=== PATIENT | male | born 2000 | race Caucasian/White ===

== ENCOUNTER 2022-11-21 01:16 | Observation (INO) ==
[2022-11-21] MEDS ORDERED: SODIUM CHLORIDE 0.9% 500 ML IV SCH (01:30)
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
[2022-11-21 01:57] LABS: iSTAT Creatinine 1.5 mg/dl (0.6-1.3); iSTAT Hemoglobin 15.6 g/dl (14.0-18.0); iSTAT Ionized Calcium 1.23 mmol/l (1.12-1.32); iSTAT Potassium 4.5 mmol/L (3.3-5.0)
[2022-11-21 02:07] LABS: Basophils # (auto) 0.03 K/uL (0-0.2); Basophils % (auto) 0.3 %; Eosinophils # (auto) 0.08 K/uL (0-0.50); Eosinophils % (auto) 0.7 %; Hematocrit (blood only) 45.3 % (42.0-52.0); Hemoglobin 15.5 g/dl (14.0-18.0); Immature Granulocytes # (auto) 0.08 K/uL (0.01-0.20); Immature Granulocytes % (auto) 0.7 %; Lymphocytes # (auto) 2.18 K/uL (1.2-3.4); Lymphocytes % (auto) 20.1 %; Mean Corpuscular Hemoglobin 27.7 pg (25.0-34.0); Mean Corpuscular Hgb Conc 34.2 g/dL (32.0-36.0); Mean Corpuscular Volume 80.9 fL (80.0-100.0); Mean Platelet Volume 10.4 fL (9.4-12.4); Monocytes # (auto) 0.49 K/uL (0.11-0.59); Monocytes % (auto) 4.5 %; Neutrophils # (auto) 7.99 K/uL (1.40-6.50); Neutrophils % (auto) 73.7 %; Platelet Count 304 K/uL (130-400); RDW Coefficient of Variation 12.6 % (11.5-14.5); RDW Standard Deviation 36.6 fL (36.4-46.3); White Blood Count 10.85 K/ul (4.8-10.8)
[2022-11-21 02:16] LABS: Albumin Globulin Ratio 1.7 (0.9-2); Albumin Level 4.9 gm/dl (3.4-5.0); BUN Creatinine Ratio 12.4 (10-20); Bilirubin,Total 1.7 mg/dl (0.2-1.0); Calcium 10.1 mg/dl (8.6-10.3); Creatinine Clr Calc Pharmacy 107.8 ml/min; Est GFR (African American) 84.8 ml/min; Est GFR (Non-African American) 73.2 ml/min; Globulin 2.9 gm/dl (2.5-4.0); Potassium 4.5 mmol/L (3.5-5.1); Total Protein 7.8 gm/dl (6.0-8.3)
[2022-11-21 02:22] LABS: Troponin I High Sensitivity 4.3 pg/ml (0-20)
--- NOTE | 2022-11-21 02:28 | CT Scan Report ---
Exam(s): CT C SPINE EXAM: CT Cervical Spine Without Intravenous Contrast CLINICAL HISTORY: Reason for exam: Trauma. TECHNIQUE: Axial computed tomography images of the cervical spine without intravenous contrast. CTDI is 26.96 mGy and DLP is 603.62 mGy-cm. Automated exposure control was utilized for the study. A dose lowering technique was utilized adhering to the principles of ALARA. COMPARISON: No relevant prior studies available. FINDINGS: Vertebrae: Unremarkable. No acute fracture. Discs/spinal canal/neural foramina: No acute findings. No spinal canal stenosis. Soft tissues: Unremarkable. IMPRESSION: Normal cervical spine CT. Electronically signed by: Cahz Montero MD 11/21/22 02:28 AM
--- NOTE | 2022-11-21 02:30 | CT Scan Report ---
Exam(s): CT ABDOMEN + PELVIS Without Contrast EXAM: CT Abdomen and Pelvis Without Intravenous Contrast CLINICAL HISTORY: Reason for exam: Trauma. TECHNIQUE: Axial computed tomography images of the abdomen and pelvis without intravenous contrast. CTDI is 56.06 mGy and DLP is 2510 mGy-cm. Automated exposure control was utilized for the study. A dose lowering technique was utilized adhering to the principles of ALARA. COMPARISON: No relevant prior studies available. FINDINGS: Lung bases: Unremarkable. No mass. No consolidation. ABDOMEN: Liver: Unremarkable. Gallbladder and bile ducts: Unremarkable. No calcified stones. No ductal dilation. Pancreas: Unremarkable. No ductal dilation. Spleen: Unremarkable. No splenomegaly. Adrenals: Unremarkable. No mass. Kidneys and ureters: significant bilateral [place] renal atrophy. There is a transplant kidney in the right lower quadrant. No obstructing stones. No hydronephrosis. Stomach and bowel: Unremarkable. No obstruction. No mucosal thickening. PELVIS: Appendix: No findings to suggest acute appendicitis. Bladder: Unremarkable. No stones. Reproductive: Unremarkable as visualized. ABDOMEN and PELVIS: Intraperitoneal space: Unremarkable. No free air. No significant fluid collection. Bones/joints: No acute fracture. No dislocation. Soft tissues: Unremarkable. Vasculature: There is some minimal atherosclerotic disease. No abdominal aortic aneurysm. Lymph nodes: Unremarkable. No enlarged lymph nodes. IMPRESSION: No evidence for acute traumatic injury in the abdomen or pelvis. Electronically signed by: Chaz Montero MD 11/21/22 02:29 AM
--- NOTE | 2022-11-21 02:31 | CT Scan Report ---
Exam(s): CT HEAD Without Contrast EXAM: CT Head Without Intravenous Contrast CLINICAL HISTORY: Reason for exam: Trauma. TECHNIQUE: Axial computed tomography images of the head/brain without intravenous contrast. CTDI is 37.51 mGy and DLP is 624.41 mGy-cm. Automated exposure control was utilized for the study. A dose lowering technique was utilized adhering to the principles of ALARA. COMPARISON: No relevant prior studies available. FINDINGS: Brain: Unremarkable. No hemorrhage. No significant white matter disease. No edema. Ventricles: Unremarkable. No ventriculomegaly. Bones/joints: Unremarkable. No acute fracture. Soft tissues: Unremarkable. Sinuses: Unremarkable as visualized. No acute sinusitis. Mastoid air cells: Unremarkable as visualized. No mastoid effusion. IMPRESSION: Normal head/brain CT. Electronically signed by: Chaz Montero MD 11/21/22 02:30 AM
--- NOTE | 2022-11-21 02:31 | CT Scan Report ---
Exam(s): CT CHEST Without Contrast EXAM: CT Chest Without Intravenous Contrast CLINICAL HISTORY: Reason for exam: Trauma. TECHNIQUE: Axial computed tomography images of the chest without intravenous contrast. CTDI is 56.08 mGy and DLP is 2510 mGy-cm. Automated exposure control was utilized for the study. A dose lowering technique was utilized adhering to the principles of ALARA. COMPARISON: No relevant prior studies available. FINDINGS: Lungs: Unremarkable. No mass. No consolidation. Pleural space: Unremarkable. No pneumothorax. No significant effusion. Heart: Unremarkable. No cardiomegaly. No significant pericardial effusion. No significant coronary artery calcifications. Bones/joints: Unremarkable. No acute fracture. No dislocation. Soft tissues: Unremarkable. Vasculature: Unremarkable. No thoracic aortic aneurysm. Lymph nodes: Unremarkable. No enlarged lymph nodes. IMPRESSION: Normal chest CT. Electronically signed by: Chaz Montero MD 11/21/22 02:29 AM
[2022-11-21] MEDS ORDERED: ACETAMINOPHEN 325 MG TAB PO STA (03:43)
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
[2022-11-21 06:32] LABS: Appearance Urine Clear (Clear); Bacteria Urine Automated Negative (Negative); Bilirubin Urine Negative (Negative); Blood Urine Negative (Negative); Color Urine Yellow; Glucose Urine UA Negative (Negative); Ketones Urine 1+ (Negative); Leukocyte Esterase Urine Negative (Negative); Nitrite Urine Negative (Negative); Protein Urine Trace (Negative); RBC Urine Automated 0-4 /hpf (0-4); Specific Gravity Urine 1.013 (1.000-1.030); Urobilinogen Urine Negative (Negative)
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
[2022-11-21] MEDS: ACETAMINOPHEN 325 MG TAB PO PRN (08:12)
[2022-11-21] MEDS: CHOLECALCIFEROL 1,000 UNITS 25 MCG TAB PO SCH (08:13)
[2022-11-21] MEDS: predniSONE 5 MG TAB PO SCH (08:14)
[2022-11-21] MEDS: carvediloL 12.5 MG TAB PO SCH ×2 (08:14→21:21)
[2022-11-21] MEDS: EZETIMIBE 10 MG TAB PO SCH (08:14)
[2022-11-21] MEDS: MYCOPHENOLATE MOFETIL 250 MG CAP PO SCH ×2 (09:04→21:21)
[2022-11-21] MEDS: amLODIPine BESYLATE 5 MG TAB PO SCH (09:04)
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
--- NOTE | 2022-11-21 12:18 | XCELERA ---
[id number] [id number]
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
[2022-11-21] MEDS ORDERED: IOVERSOL 350 MG 125mL Prefilled Syringe IV ONE (14:38)
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
[2022-11-21] MEDS: ASTAGRAF 1 MG PO SCH (17:50)
[2022-11-21] MEDS: PRAVASTATIN SOD 20 MG TAB PO SCH (21:20)
[2022-11-21] MEDS: icosapent ethyL 1 GM CAP PO SCH (21:22)
--- NOTE | 2022-11-22 03:18 | Billing Data ---
Date of Service November 22, 2022 Coding Level of Care Code 66251 INT INP/OBS CARE
[2022-11-22] MEDS: ACETAMINOPHEN 325 MG TAB PO PRN (06:58)
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
[2022-11-22 07:04] LABS: Base Excess VBG -2.8 mEq/L; HCO3 VBG 22 mmol/L; Oxygen Saturation VBG 94.3 %; PCO2 VBG 37 mmHg (38-50); PO2 VBG 65 mmHg; pH VBG 7.38 (7.36-7.41)
[2022-11-22 07:14] LABS: Hematocrit (blood only) 40.6 % (42.0-52.0); Hemoglobin 13.9 g/dl (14.0-18.0); Mean Corpuscular Hemoglobin 27.9 pg (25.0-34.0); Mean Corpuscular Hgb Conc 34.2 g/dL (32.0-36.0); Mean Corpuscular Volume 81.5 fL (80.0-100.0); Mean Platelet Volume 10.1 fL (9.4-12.4); Platelet Count 251 K/uL (130-400); RDW Coefficient of Variation 12.9 % (11.5-14.5); RDW Standard Deviation 37.6 fL (36.4-46.3); Red Blood Count 4.98 M/uL (4.70-6.10); White Blood Count 8.76 K/ul (4.8-10.8)
[2022-11-22 07:48] LABS: Albumin Globulin Ratio 1.6 (0.9-2); Albumin Level 4.1 gm/dl (3.4-5.0); BUN Creatinine Ratio 10.2 (10-20); Bilirubin,Total 1.4 mg/dl (0.2-1.0); Calcium 9.2 mg/dl (8.6-10.3); Creatinine Clr Calc Pharmacy 75.2 ml/min; Est GFR (African American) 58.6 ml/min; Est GFR (Non-African American) 50.6 ml/min; Globulin 2.6 gm/dl (2.5-4.0); Magnesium 2.2 mg/dl (1.7-2.4); Potassium 3.7 mmol/L (3.5-5.1); Total Protein 6.7 gm/dl (6.0-8.3)
[2022-11-22] MEDS ORDERED: LACTATED RINGER'S 1,000 ML IV ONE (08:35)
[2022-11-22] MEDS: icosapent ethyL 1 GM CAP PO SCH ×2 (08:52→19:54)
[2022-11-22] MEDS: ASTAGRAF 1 MG PO SCH ×2 (08:53→17:54)
[2022-11-22] MEDS: amLODIPine BESYLATE 5 MG TAB PO SCH (08:56)
[2022-11-22] MEDS: CHOLECALCIFEROL 1,000 UNITS 25 MCG TAB PO SCH (08:56)
[2022-11-22] MEDS: predniSONE 5 MG TAB PO SCH (08:56)
[2022-11-22] MEDS: MYCOPHENOLATE MOFETIL 250 MG CAP PO SCH ×2 (08:57→19:53)
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
[2022-11-22] MEDS: EZETIMIBE 10 MG TAB PO SCH (08:58)
[2022-11-22] MEDS: carvediloL 12.5 MG TAB PO SCH (08:58)
[2022-11-22] MEDS ORDERED: GADOBUTROL 65ML VIAL IV ONE (11:16)
--- NOTE | 2022-11-22 13:49 | Magnetic Resonance Report ---
Brain MRI WITH AND WITHOUT CONTRAST HISTORY: recurrent amnestic events TECHNIQUE: Multiplanar multisequence MRI of the brain was performed both before and after the intrave nous administration of contrast. COMPARISON STUDY: Head CT 11/21/2022. FINDINGS: There are no areas of restricted diffusion to suggest acute infarction. The midline structu res are intact. The paranasal sinuses are clear. The mastoid air cells are clear. The ventricles and sulci are within normal limits for age. There is no mass, hematoma, midline shift. The major vascular flow-voids at the skull base are well maintained. Postcontrast sequences show no areas of abnormal e nhancement. IMPRESSION: No acute intracranial abnormality. ACT 112: Negative or not required by law. Electronically signed by: Abundio Bazzi M.D. 11/22/2022 1:47 PM
[2022-11-22 15:51] LABS: BUN Creatinine Ratio 9.9 (10-20); Calcium 9.4 mg/dl (8.6-10.3); Creatinine Clr Calc Pharmacy 73.3 ml/min; Est GFR (African American) 56.8 ml/min
[2022-11-22] MEDS: LACTATED RINGER'S 1,000 ML IV SCH (16:29)
[2022-11-22] MEDS: carvediloL 6.25 MG TAB PO SCH (16:30)
[2022-11-22] MEDS ORDERED: Nursing to Pharmacy Communication SCH (16:45)
[2022-11-22 17:13] LABS: Appearance Urine Clear (Clear); Bilirubin Urine Negative (Negative); Blood Urine Negative (Negative); Color Urine Yellow; Glucose Urine UA Negative (Negative); Ketones Urine Negative (Negative); Leukocyte Esterase Urine Negative (Negative); Nitrite Urine Negative (Negative); Protein Urine Negative (Negative); Urobilinogen Urine Negative (Negative); pH Urine 5.5 (4.5-7.5)
[2022-11-22 17:27] LABS: Total Protein Urine Random 18.5 mg/dl (0-11.9)
[2022-11-22 17:32] LABS: Creatinine Urine Random 126.9 mg/dl; Protein Creatinine Ratio Urine 0.1 (0-0.2)
--- NOTE | 2022-11-22 18:32 | Billing Data ---
Date of Service November 22, 2022 Coding Level of Care Code 64821 SUB INP/OBS CARE MIN
[2022-11-22] MEDS: PRAVASTATIN SOD 20 MG TAB PO SCH (19:53)
[2022-11-23] MEDS: LACTATED RINGER'S 1,000 ML IV SCH ×2 (00:29→07:21)
[2022-11-23 07:56] LABS: Basophils # (auto) 0.02 K/uL (0-0.2); Basophils % (auto) 0.3 %; Eosinophils % (auto) 1.5 %; Hematocrit (blood only) 39.4 % (42.0-52.0); Hemoglobin 13.2 g/dl (14.0-18.0); Immature Granulocytes # (auto) 0.02 K/uL (0.01-0.20); Immature Granulocytes % (auto) 0.3 %; Lymphocytes # (auto) 2.31 K/uL (1.2-3.4); Lymphocytes % (auto) 35.4 %; Mean Corpuscular Hemoglobin 27.6 pg (25.0-34.0); Mean Corpuscular Hgb Conc 33.5 g/dL (32.0-36.0); Mean Corpuscular Volume 82.3 fL (80.0-100.0); Mean Platelet Volume 10.2 fL (9.4-12.4); Monocytes # (auto) 0.58 K/uL (0.11-0.59); Monocytes % (auto) 8.9 %; Neutrophils % (auto) 53.6 %; Platelet Count 252 K/uL (130-400); RDW Coefficient of Variation 12.7 % (11.5-14.5); RDW Standard Deviation 38.1 fL (36.4-46.3); Red Blood Count 4.79 M/uL (4.70-6.10); White Blood Count 6.53 K/ul (4.8-10.8)
[2022-11-23 08:18] LABS: BUN Creatinine Ratio 10.9 (10-20); Calcium 9.2 mg/dl (8.6-10.3); Creatinine Clr Calc Pharmacy 95.8 ml/min; Est GFR (African American) 77.9 ml/min; Est GFR (Non-African American) 67.2 ml/min; Potassium 3.9 mmol/L (3.5-5.1)
[2022-11-23] MEDS: CHOLECALCIFEROL 1,000 UNITS 25 MCG TAB PO SCH (08:19)
[2022-11-23] MEDS: carvediloL 6.25 MG TAB PO SCH (08:20)
[2022-11-23] MEDS: predniSONE 5 MG TAB PO SCH (08:20)
[2022-11-23] MEDS: icosapent ethyL 1 GM CAP PO SCH (08:20)
[2022-11-23] MEDS: MYCOPHENOLATE MOFETIL 250 MG CAP PO SCH (08:20)
[2022-11-23] MEDS: amLODIPine BESYLATE 5 MG TAB PO SCH (08:20)
[2022-11-23] MEDS: EZETIMIBE 10 MG TAB PO SCH (08:31)
--- NOTE | 2022-11-23 09:02 | Electrocardiogram Report ---
Test Reason : Blood Pressure : / mmHG Vent. Rate : 083 BPM Atrial Rate : 083 BPM P-R Int : 160 ms QRS Dur : 084 ms QT Int : 342 ms P-R-T Axes : 024 034 031 degrees QTc Int : 401 ms Normal sinus rhythm Normal ECG No previous ECGs available Confirmed by Modesto Sadler ([id number]) on 11/23/2022 9:01:32 AM Referred By: REFERRED SELF Confirmed By:Modesto Sadler
--- NOTE | 2022-11-23 11:01 | Communication Note ---
Date of Service: November 23, 2022 MRI brain reviewed and unremarkable. Agree with plan as outlined in neurology consult note from 11/22. No further inpatient neurologic workup.
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
[2022-11-23] MEDS ORDERED: ASTAGRAF 1 MG PO SCH (14:00)
== END 2022-11-23 13:10 | disposition home or self-care (01) | DRG 948 ==
LOC: ED 01:16 → 2N 01:16 → SUATTDRO 04:12 → 2N 05:31 → SUATTDRO 11-22 15:59